=== PATIENT | male | born 1970 | race Two or more races ===

== ENCOUNTER 2022-11-29 11:37 | Emergency (ER) | payer OTHER ==
[~2022-11-29] VITALS: Ht 175.3 cm; Wt 92.0 kg
[2022-11-29 13:11] LABS: Basophils # (auto) 0.1 10 ^3/uL (0-0.2); Basophils % (auto) 1.1 % (0.0-2.0); Eosinophils # (auto) 0.1 10 ^3/uL (0-0.8); Eosinophils % (auto) 0.8 % (0.0-7.0); Hematocrit 38.5 % (41.0-53.0); Hemoglobin 12.9 g/dL (13.5-17.5); Lymphocytes # (auto) 1.9 10 ^3/uL (0.4-5.4); Lymphocytes % (auto) 29.5 % (10.0-50.0); Mean Corpuscular Hemoglobin 29.5 pg (28.0-32.0); Mean Corpuscular Hgb Conc. 33.4 g/dL (32.0-36.0); Mean Corpuscular Volume 88.4 fL (80.0-100.0); Monocytes # (auto) 0.7 10 ^3/uL (0-1.3); Monocytes % (auto) 11.2 % (0.0-12.0); Neutrophils # (auto) 3.8 10 ^3/uL (1.6-8.6); Neutrophils % (auto) 57.4 % (37.0-80.0); Nucleated Red Blood Cells % 0.1 %; Red Blood Cells 4.36 10^6/uL (4.5-5.90); Red Cell Distribution Width 13.8 % (11.8-14.3); White Blood Cell 6.5 10^3/uL (4.4-10.8)
[2022-11-29 13:33] LABS: Blood Urea Nitrogen 18 mg/dL (7-18); Calcium 8.7 mg/dL (8.5-10.1); Glucose 98 mg/dL (74-106)
[2022-11-29 13:36] LABS: Anion Gap 6 (5-15); BUN/Creatinine Ratio 15.9 (10.0-20.0); Blood Alcohol < 3.0 mg/dL (<10); Carbon Dioxide 24 mmol/L (21-32); Chloride 116 mmol/L (98-107); GFR African American 87 mL/min; GFR Non-African American 72 mL/min; Potassium 3.3 mmol/L (3.5-5.1); Sodium 146 mmol/L (136-145)
[2022-11-29 15:12] LABS: Amphetamine Screen, Urine NEGATIVE (NEGATIVE); Barbiturate Scree,Urine NEGATIVE (NEGATIVE); Benzodiazephine Screen, Urine NEGATIVE (NEGATIVE); Cannabinoid Screen, Urine NEGATIVE (NEGATIVE); Cocaine Screen, Urine NEGATIVE (NEGATIVE); Opiate Scree,Urine NEGATIVE (NEGATIVE); Phencyclidine Screen, Urine NEGATIVE (NEGATIVE)
[2022-11-29 15:27] LABS: Urine Bacteria NONE SEEN /hpf (None Seen); Urine Blood Negative /uL (Negative); Urine Mucus FEW (None Seen); Urine Specific Gravity 1.035 (1.001-1.035); Urine WBC <1 /hpf (0 - 3)
[2022-11-29 17:29] VITALS: BP 133/78
== END 2022-11-29 17:31 ==
LOC: EEVIPCON 11:37 → ER 11:37
DX: F91.9 Conduct disorder, unspecified (principal); F20.9 Schizophrenia, unspecified; F11.90 Opioid use, unspecified, uncomplicated
CPT/HCPCS: 36415; 70450; 80048; 80307; 80320; 81001; 85025